=== PATIENT | male | born 1995 | race Caucasian/White ===

== ENCOUNTER 2017-03-26 19:05 | Emergency (ER) | payer OTHER | END 2017-03-26 19:46 | disposition left against medical advice (07) | LOC: ER1 19:05 | DX: Z53.21 Procedure and treatment not carried out due to patient leaving prior to being seen by health care provider (principal) ==

== ENCOUNTER 2021-05-15 19:27 | Emergency (ER) | payer OTHER ==
[~2021-05-15 19:27] MED LIST: IBUPROFEN600 MG PO
== END 2021-05-15 20:15 | disposition home or self-care (01) ==
LOC: ER1 19:27
DX: I10 Essential (primary) hypertension (principal); F10.10 Alcohol abuse, uncomplicated; Y90.9 Presence of alcohol in blood, level not specified; F17.200 Nicotine dependence, unspecified, uncomplicated
CPT/HCPCS: 93005; 99283

== ENCOUNTER 2021-05-31 07:04 | Emergency (ER) | payer OTHER ==
[2021-05-31 08:29] LABS: BUN/CREATININE RATIO 16 (0-10)
[2021-05-31 08:47] LABS: HEMOGLOBIN 16.2 gm/dl (14.0-17.5); RED BLOOD COUNT 5.18 M/UL (4.20-5.50); WHITE BLOOD COUNT 10.2 K/UL (4.5-11.0)
[2021-05-31] MEDS ORDERED: NARCAN4 MG (11:17)
[2021-05-31] MEDS ORDERED: ZOFRAN ODT 4 MG4 MG SL (11:17)
== END 2021-05-31 11:20 | disposition home or self-care (01) ==
LOC: ER1 07:04
PROVIDERS: Emergency Medicine
DX: F10.129 Alcohol abuse with intoxication, unspecified (principal); I10 Essential (primary) hypertension; F17.200 Nicotine dependence, unspecified, uncomplicated; Y90.2 Blood alcohol level of 40-59 mg/100 ml
CPT/HCPCS: 80053; 80307; 83690; 83735; 85025; 93005; 96374; 99284; G0480; J2405; J7030